=== PATIENT | female | born 1955 | race Caucasian/White ===

== ENCOUNTER → 2022-08-27 10:46 | Outpatient (CLI) | payer OTHER, SELFPAY ==
[2022-08-27 11:33] LABS: Influenza A - CEPHEID Flu A NEGATIVE (NEGATIVE); Influenza B - CEPHEID Flu B NEGATIVE (NEGATIVE); Respiratory Syncytial Virus Negative (Negative)
[2022-08-27 11:34] LABS: COVID-19 CEPHEID 4-PLEX PCR Negative (Negative)
== END ==
PROVIDERS: Visit Provider Nurse Practitioner Family
DX: R05.1 Acute cough (principal); J02.9 Acute pharyngitis, unspecified; Z20.822 Contact with and (suspected) exposure to COVID-19
CPT/HCPCS: 0241U; 87070

== ENCOUNTER 2023-04-23 18:36 | Emergency (ER) | payer OTHER, SELFPAY ==
[2023-04-23] VITALS (9 sets, daily range): BP systolic 141–195; BP diastolic 74–82; PULSE 61–69; RESP 20; TEMP 36.6; O2SAT 94–99; BMI 28.7
--- NOTE | 2023-04-23 18:57 | DI.RAD.S_ITS ---
PROCEDURE: XR KNEE RT 3V INDICATIONS: fall on thinners TECHNIQUE: 3 views of the knee were acquired. COMPARISON: None. FINDINGS: Bones: Baae-kj-wlrhkzdo degenerative changes. No displaced fracture or dislocation. Soft tissues: There is a joint effusion. Vascular calcifications. IMPRESSION: Degenerative changes. Joint effusion. No acute radiographic abnormality. If there is high concern for occult injury, consider repeat radiography or cross-sectional imaging. Dictated by: Desean Milton M.D. on 04/23/2023 at 19:56 Approved by: Desean Milton M.D. on 04/23/2023 at 19:58
--- NOTE | 2023-04-23 18:58 | DI.RAD.S_ITS ---
PROCEDURE: XR WRIST RT MIN 3V INDICATIONS: fall on thinners TECHNIQUE: 4 views of the wrist were acquired. COMPARISON: None. FINDINGS: Bones: Mild scattered degenerative changes. Prominent scapholunate interval at 3-4 mm. No displaced fracture or dislocation. Soft tissues: No suspicious soft tissue calcifications. IMPRESSION: No displaced osseous injury. Prominent scapholunate interval could represent age-indeterminate scapholunate ligamentous injury. There also degenerative changes. If there is high concern for occult injury, consider repeat radiography or cross-sectional imaging. Dictated by: Desean Milton M.D. on 04/23/2023 at 19:58 Approved by: Desean Milton M.D. on 04/23/2023 at 20:00
--- NOTE | 2023-04-23 19:00 | DI.CT.S_ITS ---
PROCEDURE: CT HEAD/BRAIN WO CON INDICATIONS: fall on thinners TECHNIQUE: Noncontrast 4.5 mm thick angled axial sections acquired from the foramen magnum to the vertex, with coronal and sagittal reformats. For radiation dose reduction, the following was used: automated exposure control, adjustment of mA and/or kV according to patient size. COMPARISON: None. FINDINGS: Image quality: Good CSF spaces: Basal cisterns are patent. Lateral ventricles are symmetric. Volume: Mild volume loss. Vascular calcifications. Brain: No intracranial hemorrhage. Reardon-white differentiation is grossly maintained. Craniofacial structures: No displaced fracture. Sinuses are clear. Orbits are intact. Empty sella. IMPRESSION: No acute intracranial pathology. Dictated by: Desean Milton M.D. on 04/23/2023 at 19:32 Approved by: Desean Milton M.D. on 04/23/2023 at 19:33
--- NOTE | 2023-04-23 19:02 | DI.CT.S_ITS ---
PROCEDURE: CT CERVICAL SPINE WO CON INDICATIONS: fall on thinners TECHNIQUE: Noncontrast 3 mm thick sections acquired from the skull base to the T4 level. Sagittal and coronal reformats were then constructed. For radiation dose reduction, the following was used: automated exposure control, adjustment of mA and/or kV according to patient size. COMPARISON: None. FINDINGS: Image quality: Good Bones: Mild overall degenerative changes. No traumatic subluxation. Vertebral body heights are well maintained. 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 Soft tissues: No pneumothorax at the lung apices. No actual thyroid nodules on this noncontrast evaluation. There are vascular calcifications. IMPRESSION: Mild degenerative changes. No acute fracture or traumatic subluxation. If there is high concern for further derangement, consider MRI evaluation. Dictated by: Desean Milton M.D. on 04/23/2023 at 19:34 Approved by: Desean Milton M.D. on 04/23/2023 at 19:35
--- NOTE | 2023-04-23 20:32 | ED_ITS ---
HPI - General Adult General Chief complaint: Trauma Stated complaint: fall/ hit head/wrist and knee on blood thinners Time Seen by Provider: 04/23/23 19:00 Source: patient Mode of arrival: Ambulatory History of Present Illness HPI narrative: 67-year-old woman with cardiac disease status post an LAD stent placed on February 21 currently on Plavix, hypertension, hyperlipidemia, has been dramatically changing diet and adding exercise and with significant effort has lost almost 30 lb. She got a new puppy and has been working on training the puppy and with the last walk of the day the puppy manage to walk between her legs and caused her to stumble and fall. She landed on her right knee with a contusion to the right tibial tuberosity, contusions to thenar eminence both hands she did hit her head. Does not complaining of headache or neck pain. There was no loss of consciousness, she was able to get up and walk back home. She is complaining of increasing knee and wrist pain. Related Data Home Medications Medication Instructions Recorded Confirmed amlodipine PO 08/27/22 08/27/22 aspirin 81 mg tablet,delayed 81 mg PO DAILY 08/27/22 08/27/22 release (Adult Low Dose Aspirin) atorvastatin PO 08/27/22 08/27/22 clopidogrel [Plavix] PO 08/27/22 08/27/22 losartan PO 08/27/22 08/27/22 metoprolol succinate PO 08/27/22 08/27/22 Previous Rx's Medication Instructions Recorded benzonatate 100 mg capsule 100 mg PO BID PRN cough #20 caps 08/27/22 Allergies Allergy/AdvReac Type Severity Reaction Status Date / Time erythromycin base Allergy Unknown Verified 04/23/23 19:04 [From ERYTHROCIN] Penicillins [PENICILLINS] Allergy Unknown Unverified 08/27/22 10:40 droperidol Allergy Verified 04/23/23 19:05 Latex, Natural Rubber Allergy Verified 04/23/23 19:04 walnut Allergy Verified 04/23/23 19:04 Review of Systems Review of Systems Narrative: Pertinent positive and negative findings as per HPI Patient History Medical History (Updated 04/23/23 @ 21:00 by Caitlin Nuñez MD) Hyperlipidemia Hypertension Coronary artery disease Social History Smoking Status: Never smoker Smoking Status: Never smoker alcohol intake frequency: 0-2 drinks per day Substance Use Type: does not use Exam Initial Vital Signs Initial Vital Signs: Vital Signs Pulse Rate 67 04/23/23 18:47 Pulse Oximetry 98 04/23/23 18:47 General: Healthy appearing, in no acute distress. Able to give a complete and coherent history. Well-nourished well-developed HEENT: Moist mucous membranes, normal sclera with reactive pupils, minor hematoma to the right forehead without significant contusion. Neck: No significant midline cervical spine tenderness Respiratory: Lungs are clear to auscultation, no wheezing no rales no rhonchi. Full and symmetrical air movement Cardiac: Regular rate and rhythm no murmurs no bruits Abdomen: Soft, nontender, good bowel tones, no flank pain Skin: Warm and dry, she is an abrasion over the right anterior knee. Neurologic: Grossly neurologically intact with no obvious asymmetries or abnormalities Extremities: Minor abrasions to the palmar surfaces both hands. Her right wrist has some tenderness with range of motion but she does not have specific snuffbox tenderness. Right knee with abrasion over the tibial tuberosity she is able to fully extend and flex the knee. She does not have a significant effusion she is neurovascularly intact distally Psych: Cooperative, appropriate insight and affect Course Orders Ordered: ED Orders 04/23/23 18:57 XR knee RT 3V Stat 04/23/23 18:58 XR wrist RT min 3V Stat 04/23/23 19:00 CT head/brain wo con Stat 04/23/23 19:02 CT cervical spine wo con Stat Vital Signs Vital signs: Vital Signs - 8 hr 04/23/23 18:47 04/23/23 18:48 04/23/23 18:48 Temperature Pulse Rate 67 69 Respiratory Rate Blood Pressure 141/82 H Pulse Oximetry 98 97 Oxygen Delivery Method 04/23/23 18:50 04/23/23 19:00 04/23/23 19:00 Temperature 98 F Pulse Rate 61 63 Respiratory Rate 20 Blood Pressure 141/82 H 143/74 H Pulse Oximetry 98 97 Oxygen Delivery Method Room Air 04/23/23 19:05 04/23/23 19:47 Temperature 98 F Pulse Rate 63 Respiratory Rate 20 Blood Pressure 143/74 H Pulse Oximetry 99 96 Oxygen Delivery Method Medical Decision Making MDM Narrative Medical decision making narrative: CC: Fall Complicating co-morbidities: Recent coronary stent currently on Plavix Data collected from: patient, Medical records reviewed: No significant medical records available in our electronic system Differential considered: Significant trauma including intracranial hemorrhage, cervical spine injury, wrist fracture and knee injury Exam documented above, pertinent findings include: Contusion to her head that will likely lead to significant bruising, tenderness with range of motion to the right wrist she is able to bear weight and has full range of motion of the right knee Imaging studies independently reviewed: CT scan of the head shows no significant abnormalities CT scan of the cervical spine shows no fractures X-ray of the wrist suggests prominent scapholunate I would interval that could represent ligamentous injury, no bony abnormalities X-ray of the knee shows degenerative changes a small joint effusion but no acute bony injuries. Treatments/procedure: Wrist splint is placed on the right wrist by nursing staff. She is reexamined after placement is neurovascularly intact and pain is controlled with the additional support. Patient declined any pain medications Discussion: 67-year-old woman with mechanical fall tripping over her puppy today. Currently on Plavix. Head and cervical spine CT are unremarkable. Wrist suggest there may be some ligamentous injury and a wrist splint is placed. I asked her to follow up with her orthopedic surgeon, currently at the [facility], within the next week for follow-up. Will likely need to be reimaged. At this point I do not see evidence of a scaphoid fracture but did discuss this and importance of follow-up with the patient. Regarding her right knee she is able to bear weight with minimal tenderness. Does not have a significant effusion on clinical exam. I suspect that the abnormalities appreciated with the chronic arthritis in mild effusion are related to chronic problems however if she is still having problems when she sees the orthopedist in a week, they may also choose to reimage her knee., at this time questions are answered, she is safe for discharge home Additional Information: Emergency Medicine: Utilization of CT for Minor Blunt Head Trauma (Adult) Patient is 18 or older, presenting with minor blunt head trauma. Head CT was ordered by an emergency menagerie caretaker for trauma because Reasons: Patient is 65 or older Patient taking anticoagulant medication Discharge Plan Departure Patient Disposition: Home Clinical Impression: Fall Qualifiers: Encounter type: initial encounter Qualified Code(s): W19.XXXA - Unspecified fall, initial encounter Contusion of forehead Qualifiers: Encounter type: initial encounter Qualified Code(s): S00.83XA - Contusion of other part of head, initial encounter Right wrist sprain Qualifiers: Encounter type: initial encounter Qualified Code(s): S63.501A - Unspecified sprain of right wrist, initial encounter Abrasion of knee, right Qualifiers: Encounter type: initial encounter Qualified Code(s): S80.211A - Abrasion, right knee, initial encounter Instructions: DI for Wrist Sprain Activity Restrictions/Additional Instructions: Thank you for coming in today The head CT and cervical spine CT that we did after fall were reassuring. Unfortunately it is appropriate to check after you hit your head when you are taking Plavix. The x-ray of your wrist did not show any obvious fractures however there maybe some ligamentous injury. I have given you a wrist splint to use for comfort. You can use Tylenol for pain control if you need it. You may find ice to be helpful. I would recommend follow-up with your [facility] orthopedic physician in about a week. They may choose to reimage at time time and make sure you are healing appropriately and there are no occult fractures. Similarly, your knee did not show any obvious fractures. If you are noticing that you are having difficulty walking on it or limited range of motion I would also have the orthopedist re-evaluate that in a week to make sure that no occult fractures or ligamentous injuries have been missed. If you find that you are getting worse or develop any new symptoms, please feel free to return to the emergency department for further evaluation. Prescriptions: No Action amlodipine PO losartan PO metoprolol succinate PO clopidogrel [Plavix] PO aspirin [Adult Low Dose Aspirin] 81 mg tablet,delayed release (DR/EC) 81 mg PO DAILY atorvastatin PO benzonatate 100 mg capsule 100 mg PO BID PRN (Reason: cough) Qty: 20 0RF Referrals: Miscellaneous,Doctor, MD [Primary Care Provider] - Stand Alone Forms: Patient Portal/API
== END 2023-04-23 21:08 | disposition home or self-care (01) ==
PROVIDERS: Emergency Provider Emergency Medicine
DX: S00.83XA Contusion of other part of head, initial encounter (principal); S63.501A Unspecified sprain of right wrist, initial encounter; S80.211A Abrasion, right knee, initial encounter; W01.0XXA Fall on same level from slipping, tripping and stumbling without subsequent striking against object, initial encounter; Z79.02 Long term (current) use of antithrombotics/antiplatelets
CPT/HCPCS: 70450; 72125; 73110; 73562; 99284

== ENCOUNTER → 2023-05-02 08:06 | Outpatient (CLI) | payer OTHER, SELFPAY ==
[2023-05-02 09:52] LABS: Cholesterol 129 mg/dL (140-199); HDL Cholesterol 54 mg/dL (40-60); LDL Cholesterol Calculated 60 mg/dL (<100); Triglycerides 77 mg/dL (35-150)
== END ==
PROVIDERS: PCP Naturopath; Referring Provider Naturopath; Visit Provider Naturopath
DX: E78.00 Pure hypercholesterolemia, unspecified (principal)
CPT/HCPCS: 36415; 80061

== ENCOUNTER → 2023-08-09 11:04 | Outpatient (CLI) | payer OTHER, SELFPAY ==
--- NOTE | 2023-08-09 11:07 | DI.CT.S_ITS ---
PROCEDURE: CT CHEST WO CON INDICATIONS: Solitary pulmonary nodule TECHNIQUE: Noncontrast 5 mm thick sections acquired from the pulmonary apices to the posterior costophrenic angles. 1 mm lung window, 5 mm thick coronal and sagittal and 7 mm axial MIP reformats were then acquired. For radiation dose reduction, the following was used: automated exposure control, adjustment of mA and/or kV according to patient size. COMPARISON: [facility], CT, PE STUDY (CTA CHEST), 11/04/2015, 22:30. Outside Facility, CT, CT CHEST WO CON, 02/16/2023, 16:54. FINDINGS: Image quality: Diagnostic Lungs and pleura: Scattered scarring and atelectasis. No suspicious pulmonary nodules are present. There may be peripheral reticulation. The previously described jessica fissural nodule in the left lower lobe is stable, measuring 5 mm on this study (also seen in 2016). Other micro nodules and granulomas are seen. No suspicious nodules/mass requiring followup, assuming patient is not high risk and has no primary malignancy. Mediastinum, heart, and esophagus: No hiatal hernia. There are coronary calcifications. Prominent mediastinal lymph nodes, none enlarged by size criteria. Chest wall and thyroid: No actionable thyroid nodule identified. Chest wall is unremarkable Upper abdomen: Unremarkable on this limited noncontrast evaluation Bones: No acute or suspicious osseous finding. Degenerative changes are present. IMPRESSION: No suspicious nodules/mass. The previously described left lower lobe jessica fissural nodule is stable from 2016, benign. However, peripheral reticulation is present, which may be seen with interstitial lung disease, consider high-resolution protocol CT and PFTs evaluation for follow-up Coronary calcifications. Dictated by: Desean Milton M.D. on 08/14/2023 at 11:58 Approved by: Desean Milton M.D. on 08/14/2023 at 12:04
== END ==
PROVIDERS: PCP Naturopath; Referring Provider Naturopath; Visit Provider Naturopath
DX: R91.1 Solitary pulmonary nodule (principal); I25.10 Atherosclerotic heart disease of native coronary artery without angina pectoris
CPT/HCPCS: 71250

== ENCOUNTER 2023-08-16 08:30 | Outpatient (RCR) | payer OTHER, SELFPAY | END 2023-08-16 09:40 | LOC: CAR 08:30 | PROVIDERS: Referring Provider Registered Nurse Critical Care Medicine; Visit Provider Registered Nurse Critical Care Medicine | DX: Z95.5 Presence of coronary angioplasty implant and graft (principal) | CPT/HCPCS: 93798 ==

== ENCOUNTER → 2025-02-12 17:26 | Outpatient (CLI) | payer MEDICARE, OTHER, SELFPAY | PROVIDERS: PCP Naturopath; Visit Provider Nurse Practitioner Family | DX: J02.9 Acute pharyngitis, unspecified (principal) | CPT/HCPCS: 87070 ==